=== PATIENT | female | born 1995 ===

== ENCOUNTER 2018-01-14 13:22 | Emergency (ER) | payer MEDICAID ==
[2018-01-14 13:40] VITALS: RESP 18
--- NOTE | 2018-01-14 15:13 | ED PDOC ---
History of Present Illness History of Present Illness: 22 y/o female with no significant medical history presents for evaluation of post-tussive chest pain. Pt reports she was getting over a URI like illness the past week and has been having a residual dry cough left over. Since yesterday she developed minor discomfort in her right chest and right back, only during coughing episodes. When she does not cough she is asymptomatic. Cough is dry. No meds taken. No fevers/chills. No SOB/Palpitations/NAM. No calf/leg pain/ swelling. 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 No other complaints/concerns. Currently menstruating. <Curtis Haynes - Last Filed: 01/14/18 15:59> HPI: Influenza <Curtis Haynes - Last Filed: 01/14/18 15:59> <Dany Winn - Last Filed: 01/16/18 15:37> Time Seen by Provider: 01/14/18 14:26 Chief Complaint: Cough, Cold, Congestion Past Medical History Reviewed: Nursing Documentation, Vital Signs, Unable To Obtain Vital Signs: Last Vital Signs Temp 97 F L 01/14/18 13:36 Pulse 100 H 01/14/18 13:36 Resp 18 01/14/18 13:36 BP 127/76 01/14/18 13:36 Pulse Ox 99 01/14/18 13:36 - Family History Family History: States: No Known Family Hx <Curtis Haynes - Last Filed: 01/14/18 15:59> Vital Signs: Last Vital Signs Temp 98.6 F 01/14/18 17:13 Pulse 74 01/14/18 17:13 Resp 18 01/14/18 13:36 BP 120/70 01/14/18 17:13 Pulse Ox 98 01/14/18 17:13 <Dany Winn - Last Filed: 01/16/18 15:37> - Allergies Allergies/Adverse Reactions: Allergies Allergy/AdvReac Type Severity Reaction Status Date / Time No Known Allergies Allergy Verified 01/14/18 13:36 Review of Systems Constitutional: Negative for: Fever, Chills, Sweats, Weakness, Malaise, Weight loss ENT: Positive for: Nose Discharge, Nose Congestion Cardiovascular: Positive for: Chest Pain. Negative for: Palpitations, Orthopnea , Paroxysmal Noc. Dyspnea, Edema, Light Headedness Respiratory: Positive for: Cough. Negative for: Shortness of Breath, Hemoptysis , SOB with Exertion, Pleuritic Pain, Sputum, Wheezing Gastrointestinal: Negative for: Nausea, Vomiting, Abdominal Pain, Diarrhea Genitourinary Female: Negative for: Dysuria, Frequency Musculoskeletal: Negative for: Neck Pain, Shoulder Pain, Arm Pain Skin: Negative for: Rash, Bruising Neurological: Negative for: Weakness, Numbness, Incoordination, Change in Speech , Confusion, Seizures, Altered Mental Status, Dizziness <Curtis Haynes - Last Filed: 01/14/18 15:59> Physical Exam - Reviewed Nursing Documentation Reviewed: Yes Vital Signs Reviewed: Yes - Physical Exam Appears: Positive for: Well, Non-toxic, No Acute Distress Head Exam: Positive for: ATRAUMATIC, NORMAL INSPECTION, NORMOCEPHALIC Skin: Positive for: Normal Color, Warm, Dry Eye Exam: Positive for: EOMI, PERRL. Negative for: Conjunctival injection ENT: Positive for: Normal ENT Inspection Neck: Positive for: Normal, Painless ROM, Supple. Negative for: Decreased ROM Cardiovascular/Chest: Positive for: Regular Rate, Rhythm, Chest Non Tender, Other (reproducible discomfort during coughing ). Negative for: Edema, Gallop, JVD, Murmur, Bradycardia, Tachycardia, Irregularly Irregular Respiratory: Positive for: Normal Breath Sounds. Negative for: Decreased Breath Sounds, Accessory Muscle Use, Crackles, Rales, Rhonchi, Stridor, Wheezing , Respiratory Distress, Plerual Rub Pulses-Radial (L): 2+ Pulses-Radial (R): 2+ Extremity: Positive for: Normal ROM, Capillary Refill (<2s), Other (homans neg b /l). 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 Explained to pt why CXR is currently not indicated, whom understood and agreed. <NickalyssaCurtis - Last Filed: 01/14/18 15:59> Disposition - Patient ED Disposition Is Patient to be Admitted: No - Disposition Disposition: Routine/Home Disposition Time: 16:00 <NickmadhaviCurtis gudino - Last Filed: 01/14/18 15:59> Doctor Will See Patient In The: Office Counseled Patient/Family Regarding: Studies Performed, Diagnosis, Need For Followup <Dany Winn - Last Filed: 01/16/18 15:37> - Clinical Impression Clinical Impression: Cough, Costochondritis - Disposition Referrals: Ni Virgen MD [Medical Doctor] - Condition: GOOD Additional Instructions: follow up with your primary medical doctor in 2-3 days take medications as prescribed drink plenty of fluids any fever, worsening cough with mucous production, Chest pain, difficulty breathing return to ED Instructions: Costochondritis Print Language: MICRONESIAN Supervising Attending Note - Supervising Attending Note The Documented history was done by the: Physician Service Desk Analyst, Attending Physician The documented physical exam was done by the: Physician Service Desk Analyst, Attending Physician The documented procedures were done by the: Physician Service Desk Analyst, Attending Physician - Attestation: I have personally seen and examined this patient.: Yes I have fully participated in the care of the patient.: Yes I have reviewed all pertinent clinical information: Yes <Dany Winn - Last Filed: 01/16/18 15:37>
[2018-01-14 17:15] VITALS: BP 120/70; PULSE 74; TEMP 98.6; O2SAT 98
== END 2018-01-14 17:17 | disposition home or self-care (01) ==
LOC: H.ER 13:22
DX: R05 Cough (principal); M94.0 Chondrocostal junction syndrome [Tietze]